=== PATIENT | male | born 1980 | race African-American/Black ===

== ENCOUNTER 2020-05-24 04:44 | Emergency (ER) | payer MEDICAID, OTHER ==
[~2020-05-24] VITALS: Ht 182.9 cm; Wt 108.9 kg
[2020-05-24] MEDS ORDERED: SODIUM CHLORIDE 0.9% 1,000 ML IV ONE (07:00)
[2020-05-24] MEDS ORDERED: InsuLIN REG 1unit/0.01ml Soln (100units/ml) IV ONE (07:00)
[2020-05-24 07:10] LABS: Basophils # (auto) 0 10 ^3/uL (0-0.2); Basophils % (auto) 0.4 % (0.0-2.0); Eosinophils # (auto) 0.1 10 ^3/uL (0-0.8); Eosinophils % (auto) 0.9 % (0.0-7.0); Hematocrit 40.5 % (41.0-53.0); Hemoglobin 13.4 g/dL (13.5-17.5); Lymphocytes # (auto) 2.5 10 ^3/uL (0.4-5.4); Lymphocytes % (auto) 41.3 % (10.0-50.0); Mean Corpuscular Hemoglobin 29.4 pg (28.0-32.0); Monocytes # (auto) 0.4 10 ^3/uL (0-1.3); Neutrophils # (auto) 3.1 10 ^3/uL (1.6-8.6); Neutrophils % (auto) 51.4 % (37.0-80.0); Nucleated Red Blood Cells % 0.1 %; Platelet Count (auto) 263 10^3/uL (140-450); Red Blood Cells 4.55 10^6/uL (4.5-5.90); Red Cell Distribution Width 13.6 % (11.8-14.3)
[2020-05-24 07:11] LABS: Urine Bacteria NONE SEEN /hpf (None Seen); Urine Blood Negative /uL (Negative); Urine Mucus FEW (None Seen); Urine Specific Gravity 1.043 (1.001-1.035); Urine WBC 1 /hpf (0 - 3)
[2020-05-24 07:31] LABS: Alcohol, Urine < 3.0 mg/dL (0-10); Amphetamine Screen, Urine NEGATIVE (NEGATIVE); Barbiturate Scree,Urine NEGATIVE (NEGATIVE); Benzodiazephine Screen, Urine NEGATIVE (NEGATIVE); Cocaine Screen, Urine NEGATIVE (NEGATIVE); Phencyclidine Screen, Urine POSITIVE (NEGATIVE)
[2020-05-24 07:34] LABS: Chloride 107 mmol/L (98-107); Potassium 3.6 mmol/L (3.5-5.1); Sodium 139 mmol/L (136-145)
[2020-05-24 07:43] LABS: Alanine Aminotransferase 22 U/L (16-61); Albumin 3.6 g/dL (3.4-5.0); Alkaline Phosphatase 98 U/L (45-117); Anion Gap 6 (5-15); Aspartate Aminotransferase 10 U/L (15-37); Bilirubin, Total 0.6 mg/dL (0.2-1.0); Blood Alcohol < 3.0 mg/dL (0-5); Blood Urea Nitrogen 9 mg/dL (7-18); Calcium 8.8 mg/dL (8.5-10.1); Carbon Dioxide 26 mmol/L (21-32); GFR African American 119 mL/min; GFR Non-African American 98 mL/min; Glucose 231 mg/dL (74-106); Magnesium 1.8 mg/dL (1.6-2.6); Total Protein 6.8 g/dL (6.4-8.2)
[2020-05-24 07:46] LABS: Cannabinoid Screen, Urine POSITIVE (NEGATIVE); Opiate Scree,Urine NEGATIVE (NEGATIVE)
[2020-05-24 08:36] VITALS: BP 125/64
== END 2020-05-24 09:34 | disposition home or self-care (01) ==
LOC: ER 04:44
DX: E11.65 Type 2 diabetes mellitus with hyperglycemia (principal)
CPT/HCPCS: 36415; 80053; 80307; 80320; 81001; 82962; 83036; 83735; 85025; 96361; 96374; 99285; J1815; J7030